=== PATIENT | female | born 1965 | race Caucasian/White ===

== ENCOUNTER 2020-12-03 07:17 | Inpatient (IN) | payer MEDICAID ==
[2020-12-03] VITALS (10 sets, daily range): BP systolic 159–200; BP diastolic 52–118
[~2020-12-03] VITALS: Ht 165.1 cm; Wt 85.3 kg
[2020-12-03] MEDS ORDERED: LABETALOL 5MG/ML SYR 20 MG/4 ML SYRINGE IV ONE (07:45)
[2020-12-03 08:00] LABS: BASOPHILS % 0.5 % (0.0-2.0); EOSINOPHILS % 2.5 % (0.0-5.0); HEMATOCRIT. 46.8 % (36.0-48.0); LYMPHOCYTES % 17.7 % (20.0-50.0); MEAN CORPUSCULAR VOLUME 96.7 fL (81.0-99.0); MEAN PLATELET VOLUME 9.6 fl (7.4-10.4); NEUTROPHILS % 73.3 % (40.0-76.0); PLATELET 212 x1000/uL (130-400); RED BLOOD CELL COUNT 4.84 mill/uL (4.2-5.4); RED CELL DISTRIBUTION WIDTH 13.2 % (11.6-14.6)
[2020-12-03 08:10] LABS: PROTHROMBIN TIME 10.9 sec (9.6-11.0)
[2020-12-03 08:26] LABS: CHLORIDE 104 mEq/L (98-107)
[2020-12-03 08:29] LABS: ETHANOL BLOOD < 10 mg/dL
[2020-12-03] MEDS ORDERED: ASPIRIN 325MG EC TABLET PO ONE (08:30)
[2020-12-03 08:32] LABS: LDL CHOLESTEROL 104 mg/dL (5-100)
[2020-12-03 08:42] LABS: CLARITY URINE CLEAR (CLEAR); COLOR URINE YELLOW (YELLOW); KETONES URINE NEGATIVE (NEGATIVE); LEUKOCYTE ESTERASE URINE NEGATIVE (NEGATIVE); NITRITE URINE NEGATIVE (NEGATIVE); OCCULT BLOOD URINE NEGATIVE (NEGATIVE); PH URINE 7.5 (4.5-8.0); PROTEIN URINE 1+ (NEGATIVE); SPECIFIC GRAVITY URINE 1.042 (1.005-1.030); UROBILINOGEN URINE 0.2 E.U./dL (0.2-1.0)
[2020-12-03 09:10] LABS: *AMPHETAMINES SCREEN URINE NEGATIVE (NEGATIVE); *BARBITURATES SCREEN URINE NEGATIVE (NEGATIVE); *BENZODIAZEPINES SCREEN URINE NEGATIVE (NEGATIVE)
[2020-12-03 09:11] LABS: *COCAINE SCREEN URINE NEGATIVE (NEGATIVE); METHADONE URINE SCREEN NEGATIVE (NEGATIVE); OPIATES URINE SCREEN NEGATIVE (NEGATIVE); PHENCYCLIDINE URINE SCREEN NEGATIVE (NEGATIVE)
[2020-12-03 09:12] LABS: CANNABINOID URINE SCREEN PRESUMTIVE POSITIVE (NEGATIVE)
[2020-12-03] MEDS ORDERED: POTASSIUM CHLORIDE 20MEQ TABLET SR PO ONE (09:15)
[2020-12-03] MEDS ORDERED: HYDRALAZINE 20MG/ML VIAL IV ONE (10:00)
[2020-12-03] MEDS ORDERED: ONDANSETRON HCL 4MG/2ML INJ IV PRN (12:15)
[2020-12-03] MEDS ORDERED: ACETAMINOPHEN 325MG TABLET PO PRN (12:15)
[2020-12-03] MEDS: ENOXAPARIN 40MG/0.4ML SYR SUBCUT SCH (12:57)
[2020-12-03] MEDS: LOSARTAN POTASSIUM 100 MG TABLET PO SCH (14:51)
[2020-12-03] MEDS: CLONIDINE 0.1MG TABLET PO SCH ×2 (16:05→23:41)
[2020-12-03] MEDS: ATORVASTATIN CALCIUM 40MG TABLET PO SCH (21:59)
[2020-12-04] VITALS (8 sets, daily range): BP systolic 123–169; BP diastolic 68–95
[2020-12-04] MEDS: CLONIDINE 0.1MG TABLET PO SCH (07:00)
[2020-12-04] MEDS: ASPIRIN 81MG TABLET PO SCH (08:25)
[2020-12-04] MEDS: LOSARTAN POTASSIUM 100 MG TABLET PO SCH (08:25)
[2020-12-04] MEDS: NIFEDIPINE XL 60MG TAB PO SCH (09:47)
[2020-12-04 10:07] LABS: MEAN CORPUSCULAR HEMOGLOBIN 33.1 pg (28.0-32.0); MEAN CORPUSCULAR VOLUME 97.2 fL (81.0-99.0); PLATELET 201 x1000/uL (130-400); RED BLOOD CELL COUNT 4.83 mill/uL (4.2-5.4); RED CELL DISTRIBUTION WIDTH 13.4 % (11.6-14.6)
[2020-12-04] MEDS ORDERED: DIPHENHYDRAMINE 25MG CAPSULE PO PRN (11:45)
[2020-12-04] MEDS: ENOXAPARIN 40MG/0.4ML SYR SUBCUT SCH (12:43)
[2020-12-04] MEDS: HYDRALAZINE HCL 100MG TABLET PO SCH ×2 (13:14→22:00)
[2020-12-04] MEDS: ATORVASTATIN CALCIUM 40MG TABLET PO SCH (22:14)
[2020-12-05] VITALS (9 sets, daily range): BP systolic 105–152; BP diastolic 66–77
[2020-12-05] MEDS: HYDRALAZINE HCL 100MG TABLET PO SCH ×3 (06:00→21:02)
[2020-12-05] MEDS: LOSARTAN POTASSIUM 100 MG TABLET PO SCH (09:00)
[2020-12-05] MEDS: NIFEDIPINE XL 60MG TAB PO SCH (09:00)
[2020-12-05] MEDS: ASPIRIN 81MG TABLET PO SCH (09:25)
[2020-12-05] MEDS: ENOXAPARIN 40MG/0.4ML SYR SUBCUT SCH (11:48)
[2020-12-05] MEDS: HYDROCORTISONE 1% CREAM 30GM TOP SCH ×2 (15:03→21:01)
[2020-12-05] MEDS: ATORVASTATIN CALCIUM 40MG TABLET PO SCH ×2 (21:01→21:04)
[2020-12-06] MEDS: HYDRALAZINE HCL 100MG TABLET PO SCH ×3 (05:32→22:01)
[2020-12-06] MEDS: HYDROCORTISONE 1% CREAM 30GM TOP SCH ×3 (05:34→22:01)
[2020-12-06] MEDS: NIFEDIPINE XL 60MG TAB PO SCH (08:09)
[2020-12-06] MEDS: LOSARTAN POTASSIUM 100 MG TABLET PO SCH (08:11)
[2020-12-06 08:13] VITALS: BP 107/50
[2020-12-06] MEDS: ASPIRIN 81MG TABLET PO SCH (08:47)
[2020-12-06 11:58] VITALS: BP 124/44
[2020-12-06] MEDS: ENOXAPARIN 40MG/0.4ML SYR SUBCUT SCH (13:13)
[2020-12-06 15:58] VITALS: BP 138/65
[2020-12-06 20:00] VITALS: BP 157/83
[2020-12-06] MEDS: HYDROXYZINE 25MG TABLET PO PRN (22:59)
[2020-12-07] MEDS: HYDRALAZINE HCL 100MG TABLET PO SCH ×3 (05:34→21:35)
[2020-12-07] MEDS: HYDROCORTISONE 1% CREAM 30GM TOP SCH ×3 (05:34→21:11)
[2020-12-07] MEDS: HYDROXYZINE 25MG TABLET PO PRN ×3 (06:14→21:10)
[2020-12-07 08:00] VITALS: BP 153/73
[2020-12-07] MEDS: ASPIRIN 81MG TABLET PO SCH (08:34)
[2020-12-07] MEDS: LOSARTAN POTASSIUM 100 MG TABLET PO SCH (08:34)
[2020-12-07] MEDS: NIFEDIPINE XL 60MG TAB PO SCH (08:38)
[2020-12-07] MEDS: ENOXAPARIN 40MG/0.4ML SYR SUBCUT SCH (11:53)
[2020-12-07 11:56] VITALS: BP 136/55
[2020-12-07 20:00] VITALS: BP 152/77
[2020-12-07] MEDS: ENOXAPARIN 80MG/0.8ML SYR SUBCUT SCH (21:34)
[2020-12-07] MEDS: ATORVASTATIN CALCIUM 40MG TABLET PO SCH (21:35)
[2020-12-08] MEDS: HYDROXYZINE 25MG TABLET PO PRN ×2 (06:05→13:42)
[2020-12-08] MEDS: HYDROCORTISONE 1% CREAM 30GM TOP SCH ×3 (06:08→21:30)
[2020-12-08] MEDS: HYDRALAZINE HCL 100MG TABLET PO SCH ×3 (06:08→21:29)
[2020-12-08 08:00] VITALS: BP 148/77
[2020-12-08] MEDS: NIFEDIPINE XL 60MG TAB PO SCH (09:08)
[2020-12-08] MEDS: LOSARTAN POTASSIUM 100 MG TABLET PO SCH (09:08)
[2020-12-08] MEDS: ENOXAPARIN 80MG/0.8ML SYR SUBCUT SCH ×2 (09:08→21:29)
[2020-12-08 16:23] VITALS: BP 121/70
[2020-12-08] MEDS: AMLODIPINE 10MG TABLET PO SCH (16:23)
[2020-12-08 20:00] VITALS: BP 154/69
[2020-12-08] MEDS: ATORVASTATIN CALCIUM 40MG TABLET PO SCH (21:00)
[2020-12-09] VITALS: BP 144/61
[2020-12-09] MEDS: HYDROXYZINE 25MG TABLET PO PRN (00:01)
[2020-12-09 04:00] VITALS: BP 140/72
[2020-12-09] MEDS: HYDRALAZINE HCL 100MG TABLET PO SCH ×2 (05:36→13:34)
[2020-12-09] MEDS: HYDROCORTISONE 1% CREAM 30GM TOP SCH ×2 (05:37→13:35)
[2020-12-09] MEDS ORDERED: CLONIDINE 0.1MG TABLET PO PRN (06:00)
[2020-12-09 07:57] VITALS: BP 145/45
[2020-12-09] MEDS: ENOXAPARIN 80MG/0.8ML SYR SUBCUT SCH (08:33)
[2020-12-09] MEDS: LOSARTAN POTASSIUM 100 MG TABLET PO SCH (08:33)
[2020-12-09] MEDS: AMLODIPINE 10MG TABLET PO SCH (08:33)
[2020-12-09] MEDS ORDERED: CLOP-31 MT (12:21)
[2020-12-09] MEDS ORDERED: LIP40 PO (12:21)
[2020-12-09] MEDS ORDERED: ASPI-1406 MT (12:21)
[2020-12-09] MEDS ORDERED: LOSA100T3 PO (12:21)
[2020-12-09] MEDS ORDERED: AMLO10TA80 PO (12:21)
[2020-12-09] MEDS ORDERED: HYDR100T26 PO (12:21)
[2020-12-09 13:28] VITALS: BP 139/64
[2020-12-09 15:20] VITALS: BP 140/45
== END 2020-12-09 17:39 | disposition home or self-care (01) | DRG 199 ==
LOC: ER 07:17 → 3WST 09:05 → EDBEDREQ 09:11 → ENRESERV 10:19 → 3WST 12:24 → 4WST 12-05 13:16
PROVIDERS: ADMIT Internal Medicine; ATTEND Internal Medicine
PROC: 4A00X4Z Measurement of Central Nervous Electrical Activity, External Approach (ICD-10-PCS; principal; 2020-12-09)
DX: I16.0 Hypertensive urgency (principal); I63.9 Cerebral infarction, unspecified; R07.89 Other chest pain; I11.9 Hypertensive heart disease without heart failure; F12.90 Cannabis use, unspecified, uncomplicated; E66.9 Obesity, unspecified; E87.6 Hypokalemia; F17.210 Nicotine dependence, cigarettes, uncomplicated; F10.10 Alcohol abuse, uncomplicated; E78.5 Hyperlipidemia, unspecified; Z20.822 Contact with and (suspected) exposure to COVID-19; Z59.0 Homelessness; Z82.49 Family history of ischemic heart disease and other diseases of the circulatory system; Z86.73 Personal history of transient ischemic attack (TIA), and cerebral infarction without residual deficits; Z91.14 Patient's other noncompliance with medication regimen; Z68.31 Body mass index [BMI] 31.0-31.9, adult; Z79.899 Other long term (current) drug therapy; Z79.82 Long term (current) use of aspirin; Z71.3 Dietary counseling and surveillance; Z71.41 Alcohol abuse counseling and surveillance of alcoholic
CPT/HCPCS: 36415; 70496; 70498; 70551; 71045; 80048; 80053; 80305; 80320; 81003; 83721; 83880; 84443; 84484; 85025; 85027; 93005; 93306; 95816; 97112; 97116; 97162; 97166; 97530; 97535; 99291; J0360; J1650; J3490; Q0163; U0003; G0480